=== PATIENT | male | born 1970 | race Caucasian/White ===

== ENCOUNTER 2022-02-10 15:35 | Emergency (ER) | payer MEDICAID ==
[~2022-02-10] VITALS: Ht 167.6 cm; Wt 68.0 kg
--- NOTE | 2022-02-10 16:05 | NUR ---
Dr Mccollum at the bedside for MSE.
[2022-02-10] MEDS ORDERED: IV NORMAL SALINE 1000 ML BAG IV ONE (16:15)
[2022-02-10 16:22] LABS: HEMATOCRIT 43.1 % (36.7-47.1); MEAN CORPUSCULAR HEMOGLOBIN 31.4 uug (23.8-33.4); MEAN CORPUSCULAR VOLUME 93.3 fL (73.0-96.2); PLATELET COUNT (AUTO) 185 K/uL (152-348)
[2022-02-10 16:54] LABS: BILIRUBIN,DIRECT 0.1 mg/dL (0.0-0.2); BILIRUBIN,TOTAL 0.4 mg/dL (0.2-1.0); CREATININE 0.8 mg/dL (0.6-1.3); TOTAL PROTEIN, SERUM 8.3 g/dL (6.4-8.2)
[2022-02-10 17:05] LABS: POTASSIUM 4.1 mmol/L (3.5-5.1)
[2022-02-10] MEDS ORDERED: CIPR-262 PO (17:10)
[2022-02-10] MEDS ORDERED: LOPE2CAP PO (17:10)
--- NOTE | 2022-02-10 17:18 | NUR ---
IV removed. Catheter intact and site benign. Pressure and 4x4 gauze applied to site. No bleeding noted. Patient was discharge to home in stable condition with steady gait. All belongings were handed to patient before leaving. Verbal and written discharge instructions were given to patient. Patient verbalized understanding and compliance and will follow-up with primary doctor and the recommended specialist if needed. Stressed follow-up and to return to ER for worsening s/sx were emphasized. Copies of all the tests' results were also given to patient.
[2022-02-10 17:19] VITALS: BP 120/70
== END 2022-02-10 17:31 | disposition home or self-care (01) ==
LOC: ER 15:35
DX: R19.7 Diarrhea, unspecified (principal); R00.0 Tachycardia, unspecified
CPT/HCPCS: 99284; 96360; 80076; 80048; 83690; 85025; 36415; J7040; A4663